=== PATIENT | male | born 1950 | race Caucasian/White ===

== ENCOUNTER 2018-09-25 09:09 | Day surgery (SDC) | payer MEDICARE ==
[2018-09-25 09:41] VITALS: BMI 23.8
[2018-09-25] MEDS ORDERED: Propofol 10 mg/ml Inj (20 ML) ONE ×2 (10:57)
--- NOTE | 2018-09-25 10:58 | CP.SDSHP ---
Same Day Surgery H & P - History Proposed Procedure: COLONSCOPY Pre-Op Diagnosis: SEE NOTES - Previous Medical/Surgical History Pulmonary: Asthma Endocrine/Metabolic: Thyroid Disease, Diabetes Previous Surgical History: THYROID SX. - Allergies Allergies: Allergies No Known Allergies Allergy (Verified 09/17/18 14:03) - Physical Exam General Appearance: N Vital Signs: Vital Signs 09/25/18 09:43 Temperature 98.9 F Pulse Rate 96 H Respiratory 16 Rate Blood Pressure 113/55 L O2 Sat by Pulse 98 Oximetry Mental Status: Alert & Oriented x3 Neuro: WNL Heart: Other Lungs: Other GI: Other - {Optional Preform as Required} Breast: WNL Abdomen: Other Rectal: Other Integument: WNL : WNL Ortho: Other ENT: WNL - Impression Pt. Evaluated Today:Candidate for Anesthesia & Procedure: Yes - Date & Time Time: 10:58 Short Stay Discharge - Short Stay Discharge Admitting Diagnosis/Reason for Visit: COLON SCREENING Disposition: HOME/ ROUTINE Referrals: Annie Salomon MD [Primary Care Provider] -
[2018-09-25 11:41] VITALS: TEMP 97.8
[2018-09-25 12:13] VITALS: BP 116/59; O2SAT 97
[2018-09-25 12:29] VITALS: PULSE 76; RESP 18
== END 2018-09-25 12:26 | disposition home or self-care (01) ==
LOC: C.ENDO 09:09
PROVIDERS: ATTEND Specialist
DX: Z12.11 Encounter for screening for malignant neoplasm of colon (principal); D12.0 Benign neoplasm of cecum; K57.30 Diverticulosis of large intestine without perforation or abscess without bleeding; K64.4 Residual hemorrhoidal skin tags; K64.8 Other hemorrhoids; E11.9 Type 2 diabetes mellitus without complications; J45.909 Unspecified asthma, uncomplicated; E07.9 Disorder of thyroid, unspecified; I10 Essential (primary) hypertension; Z79.899 Other long term (current) drug therapy
CPT/HCPCS: 45380; 82948; 88305; J2704